=== PATIENT | female | born 1975 | race Two or more races ===

== ENCOUNTER 2020-12-11 12:45 | Inpatient (IN) | payer OTHER ==
[~2020-12-11] VITALS: Ht 162.6 cm; Wt 66.2 kg
[2020-12-11] MEDS ORDERED: ZESTRIL5 MG PO (15:16)
[2020-12-11] MEDS ORDERED: ATIVAN0.5 M1 PO (15:17)
[2020-12-16] MEDS ORDERED: NEO-POLY-DEXAM3.5 G1 (16:25)
== END 2020-12-19 12:56 | disposition home or self-care (01) | DRG 743 ==
LOC: O/R 12-16 10:54 → OB/GYN 12-16 12:45
PROVIDERS: ADMIT Specialist; ATTEND Specialist
PROC: 0UB70ZZ Excision of Bilateral Fallopian Tubes, Open Approach (ICD-10-PCS; 2020-12-16)
PROC: 0UT90ZZ Resection of Uterus, Open Approach (ICD-10-PCS; principal; 2020-12-16 20:45)
DX: N80.0 Endometriosis of uterus (principal); D25.1 Intramural leiomyoma of uterus; D25.2 Subserosal leiomyoma of uterus; I10 Essential (primary) hypertension